=== PATIENT | male | born 1995 | race Caucasian/White ===

== ENCOUNTER 2020-07-01 10:01 | Emergency (ER) | payer OTHER ==
[2020-07-01 10:19] VITALS: BP 161/115; PULSE 95; RESP 18; TEMP 97.4
--- NOTE | 2020-07-01 10:49 | XR ---
EXAMINATION TYPE: XR hand complete LT DATE OF EXAM: 07/01/2020 CLINICAL HISTORY: pain TECHNIQUE: Frontal, lateral and oblique images of the left hand are obtained. COMPARISON: None. FINDINGS: There is no acute fracture/dislocation evident. The joint spaces appear within normal limi ts. The overlying soft tissue appears unremarkable. IMPRESSION: There is no acute fracture or dislocation. ICD 10 NO FRACTURE, INITIAL EVALUATION
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
== END 2020-07-01 11:23 | disposition home or self-care (01) ==
LOC: EC 10:01
DX: M79.642 Pain in left hand (principal); F17.200 Nicotine dependence, unspecified, uncomplicated; Z88.0 Allergy status to penicillin
CPT/HCPCS: 99283

== ENCOUNTER 2020-12-07 18:50 | Emergency (ER) | payer OTHER ==
[2020-12-07 19:04] VITALS: BP 155/109; PULSE 82; RESP 20; TEMP 98.2
[2020-12-07] MEDS ORDERED: PROPARACAINE 0.5% OPHTH DROPS 15 ML BTL LEFT EYE STA (19:18)
[2020-12-07] MEDS ORDERED: FLUORESCEIN STRIPS 1 MG STRIP LEFT EYE ONE (19:19)
[2020-12-07] MEDS ORDERED: KETOROLAC 15 MG/ML 1 ML VIAL IM STA (19:19)
--- NOTE | 2020-12-07 19:52 | ED ---
General Adult HPI - General Chief complaint: Headache Stated complaint: migraine, blurred vision Time Seen by Provider: 12/07/20 19:10 Source: patient Mode of arrival: ambulatory Limitations: no limitations - History of Present Illness Initial comments: 25 year-old male patient presents to the emergency department for evaluation of left eye pain and headache. States that he started having some pain behind his left eye last night. States that throughout the night and through today his pain has progressively worsened. States he thinks he has a migraine headache. Reports photophobia and blurred vision. Reports clear drainage from the eye. Denies fever or chills. Denies nausea or vomiting. Denies dizziness or weakness. Denies history of migraines or similar symptoms. Patient denies any recent rash, cough, shortness of breath, chest pain, abdominal pain, nausea, vomiting, diarrhea, constipation, back pain, numbness, tingling, dizziness, weakness, hematuria, dysuria, urinary urgency, urinary frequency, or any other complaints. - Related Data Home Medications Medication Instructions Recorded Confirmed [id number] 2 tab PO ONCE PRN 12/07/20 12/07/20 [Excedrin] Unknown Blood Pressure Med 1 tab PO DAILY 12/07/20 12/07/20 diphenhydrAMINE [Benadryl] 50 mg PO ONCE PRN 12/07/20 12/07/20 Allergies Allergy/AdvReac Type Severity Reaction Status Date / Time Penicillins Allergy Unknown Verified 12/07/20 20:38 Childhood Review of Systems ROS Statement: Those systems with pertinent positive or pertinent negative responses have been documented in the HPI. ROS Other: All systems not noted in ROS Statement are negative. Past Medical History Past Medical History: Asthma Additional Past Medical History / Comment(s): bronchitis History of Any Multi-Drug Resistant Organisms: C-DIFF Past Surgical History: Adenoidectomy, Appendectomy, Cholecystectomy, Ear Surgery Additional Past Surgical History / Comment(s): 2011 liver resection for harmatoma, R ear tube in and out. Past Anesthesia/Blood Transfusion Reactions: No Reported Reaction Past Psychological History: No Psychological Hx Reported Smoking Status: Current every day smoker Past Alcohol Use History: Occasional Past Drug Use History: Marijuana - Past Family History Father Family Medical History: Hypertension, Sleep Apnea/CPAP/BIPAP Mother Family Medical History: Hypertension General Exam Limitations: no limitations General appearance: alert, in no apparent distress, other (This is a well- developed, well-nourished adult male patient in no acute distress. Vital signs upon presentation temperature 98.2F, pulse 82, respirations 20, blood pressure 155/109, pulse ox 97% on room air.) Eye exam: Present: PERRL, EOMI, conjunctival injection (left), other (Wood's lamp examination with fluorescein stain was performed and showed evidence for corneal ulcer to the left eye.). Absent: normal appearance, scleral icterus, nystagmus, periorbital swelling Expanded Eyelids: Swelling: Left Pupils: Regular, Round: Bilateral, Reactive: Bilateral Sclera/Conjunctival: Injection: Left Visual acuity (R) = 20/: 40 Visual acuity (L) = 20/: 0 (unable to visualize chart) With correction: Yes Respiratory exam: Present: normal lung sounds bilaterally. Absent: respiratory distress, wheezes, rales, rhonchi, stridor Cardiovascular Exam: Present: regular rate, normal rhythm, normal heart sounds. Absent: systolic murmur, diastolic murmur, rubs, gallop, clicks Neurological exam: Present: alert, oriented X3, CN II-XII intact Psychiatric exam: Present: normal affect, normal mood Skin exam: Present: warm, dry, intact, normal color. Absent: rash Course Vital Signs 12/07/20 19:02 Temperature 98.2 F Pulse Rate 82 Respiratory 20 Rate Blood Pressure 155/109 O2 Sat by Pulse 97 Oximetry Medical Decision Making - Medical Decision Making 25 year-old male patient presents to the emergency department for evaluation of left eye pain. Physical examination shows left conjunctival injection, clear tearing, and mild left upper and lower lid swelling. Seen stay with Wood's lamp examination was performed and did show evidence for corneal ulcer to the center of the cornea on the left side. I did discuss the case with the on-call sole skiver Dr. Leiva who instructed to give vigamox q1 hour while awake, tobramycin ointment to use just before bed. He is instructed to go to Dr. Grace nunez's office tomorrow between 10-11am. He verbalizes understanding of instructions and agrees with this plan. Case discussed with my attending Dr. Marcos. Disposition Clinical Impression: Corneal ulcer, left Disposition: HOME SELF-CARE Condition: Good Instructions (If sedation given, give patient instructions): Tobramycin (Into the eye), Moxifloxacin (Into the eye), Corneal Ulcer (ED) Additional Instructions: Use Vigamox eye drop to the left eye, 1 drop every hour while awake. Use 1cm ribbon of tobramycin ointment to the eye right before bed. Continue eye drop in the morning every hour. Follow up with the sole skiver in his office between 10 and 11 AM. Return to the emergency department immediately for any new, worsening, or concerning symptoms. Is patient prescribed a controlled substance at d/c from ED?: No Referrals: Rakan Perez MD [Primary Care Provider] - 1-2 days Jaskaran Leiva MD [STAFF PHYSICIAN] - 1-2 days Time of Disposition: 20:38
[2020-12-07] MEDS ORDERED: MOXIFLOXACIN HCL 0.5% DROPS 3 ML BTL LEFT EYE ONE (20:36)
[2020-12-07] MEDS ORDERED: TOBRAMYCIN 0.3% OPHTH OINT 3.5 GM TUBE LEFT EYE STA (20:36)
== END 2020-12-07 20:54 | disposition home or self-care (01) ==
LOC: EC 18:50
DX: H16.002 Unspecified corneal ulcer, left eye (principal); R51.9 Headache, unspecified; F17.200 Nicotine dependence, unspecified, uncomplicated; J45.909 Unspecified asthma, uncomplicated; Z88.0 Allergy status to penicillin
CPT/HCPCS: 99284; 96372; J1885

== ENCOUNTER 2021-01-10 11:18 | Emergency (ER) | payer OTHER ==
[2021-01-10 11:36] VITALS: RESP 20
[2021-01-10] MEDS ORDERED: KETOROLAC 15 MG/ML 1 ML VIAL IM STA (12:27)
[2021-01-10] MEDS ORDERED: ACETAMINOPHEN TAB 500 MG TAB PO STA (12:27)
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
--- NOTE | 2021-01-10 13:12 | CT ---
EXAMINATION TYPE: CT soft tissue neck wo con DATE OF EXAM: 01/10/2021 COMPARISON: None HISTORY: Swelling to anterior mandible. Fever. CT DLP: [address] of the neck was performed from the skull base through the lung apices. The lack of cont rast limits evaluation. There is soft tissue edema noted anterior to the mandible. There is evidence of apical lucency and de ntal caries involving the right canine as well as the left canine and first and second bicuspid. Ther e is cortical loss noted on the left. Subperiosteal abscess not excluded. AIRWAY: The supraglottic, glottic, and subglottic portions of the airway appear patent and free of mass. SALIVARY GLANDS: The submandibular and parotid glands are free of mass or inflammatory process. THYROID GLAND: No nodules or masses seen. LYMPH NODES: There is a perisubmandibular adenopathy noted measuring 1.1 cm on the right and approxim ately 1 cm on the left. Additional internal jugular chain adenopathy is noted measuring 1.2 cm on the right and up to 1.1 cm on the left. LUNG APICES: No nodule or mass is seen. OTHER: Vascular structures are patent. No significant degenerative change of the cervical spine. N o abscess seen. IMPRESSION: 1. There is soft tissue edema noted anterior to the mandible. There is evidence of apical lucency and dental caries involving the right canine as well as the left canine and first and second bicuspid. T here is cortical loss noted on the left. Subperiosteal abscess not excluded. 2. Reactive adenopathy
[2021-01-10 13:56] VITALS: BP 148/92; PULSE 98; TEMP 99.1
== END 2021-01-10 13:56 | disposition home or self-care (01) ==
LOC: EC 11:18
DX: K02.9 Dental caries, unspecified (principal); K04.7 Periapical abscess without sinus; J45.909 Unspecified asthma, uncomplicated; F17.200 Nicotine dependence, unspecified, uncomplicated; F12.90 Cannabis use, unspecified, uncomplicated; Z79.82 Long term (current) use of aspirin; Z79.899 Other long term (current) drug therapy; Z88.0 Allergy status to penicillin; Z90.49 Acquired absence of other specified parts of digestive tract; Z82.49 Family history of ischemic heart disease and other diseases of the circulatory system
CPT/HCPCS: 70490; 99283; 96372; J1885

== ENCOUNTER 2021-03-16 13:10 | Emergency (ER) | payer OTHER ==
[2021-03-16 14:05] VITALS: BP 157/90; PULSE 77; RESP 20; TEMP 98.2
--- NOTE | 2021-03-16 14:32 | XR ---
Left shoulder HISTORY: Trauma and pain 3 views the left shoulder Bone mineralization, joint spaces and alignment are maintained. Left lung apex as visualized is isa l. IMPRESSION: Normal left shoulder.
[2021-03-16] MEDS ORDERED: HYDROcodone/APAP 5-325MG 1 EACH TAB PO STA (14:33)
--- NOTE | 2021-03-16 14:37 | ED ---
General Adult HPI - General Chief complaint: Extremity Injury, Upper Stated complaint: shoulder injury/no IHS Time Seen by Provider: 03/16/21 14:15 Source: family, RN notes reviewed, old records reviewed Mode of arrival: ambulatory Limitations: no limitations - History of Present Illness Initial comments: Patient is a 25-year-old male with a past medical history remarkable for nothing. Patient comes after feeling a pop in his left shoulder. 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 He comes to the emergency department for further evaluation. States it is painful on movement but he is stable to range his left shoulder with pain. Can reach and touch his right shoulder. Denies any numbness, weakness of the left upper extremity. Denies any rashes. Denies any other acute problems at this time. No other injuries. Since emergency department concern for left shoulder injury.I evaluated the patient when he was placed in a room. - Related Data Previous Rx's Medication Instructions Recorded Clindamycin [Cleocin] 3 tab PO Q8H 10 Days #90 cap 01/10/21 Ibuprofen [Motrin] 800 mg PO Q8H PRN 7 Days #21 tab 03/16/21 Lidocaine 5% Patch [Lidoderm 5% 1 patch TOPICAL DAILY PRN 7 Days 03/16/21 Patch] #7 patch Allergies Allergy/AdvReac Type Severity Reaction Status Date / Time Penicillins Allergy Unknown Verified 03/16/21 14:03 Childhood Review of Systems ROS Statement: Those systems with pertinent positive or pertinent negative responses have been documented in the HPI. Review of Systems: CONST: Denies fever EYES: Denies blurry vision ENT: Denies nasal congestion C/V: Denies Chest pain RESP: Denies shortness of breath GI: Denies abdominal pain : Denies dysuria SKIN: Denies rash. MSK: Endorses left shoulder pain. NEURO: Denies headache ROS Other: All systems not noted in ROS Statement are negative. 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 Past Anesthesia/Blood Transfusion Reactions: No Reported Reaction Past Psychological History: No Psychological Hx Reported Smoking Status: Current every day smoker Past Alcohol Use History: Occasional Past Drug Use History: Marijuana - Past Family History Father Family Medical History: Hypertension, Sleep Apnea/CPAP/BIPAP Mother Family Medical History: Hypertension General Exam - General Exam Comments Initial Comments: General: Appears in no acute distress. HEAD: Normal with no signs of head trauma. EYES: EOMI ENT: Hearing grossly intact. RESPIRATORY: No increased work of breathing. C/V: 2+ peripheral pulses in the bilateral upper extremities are symmetrical. Normal capillary refill in the left upper extremity. ABD: Abdomen is nondistended. EXT: Decreased range of motion of the left shoulder secondary to pain. No obvious deformity. Tenderness to palpation over the AC joint as well as the shoulder muscle girdle. Can passively range the left shoulder. SKIN: No rashes or lesions observed on exposed skin. NEURO: Alert. Acting appropriately. No focal sensory or strength deficits. Neurovascularly intact throughout. Limitations: no limitations Course Vital Signs 03/16/21 14:03 Temperature 98.2 F Pulse Rate 77 Respiratory 20 Rate Blood Pressure 157/90 O2 Sat by Pulse 97 Oximetry Medical Decision Making - Medical Decision Making Based on the patient's presentation and physical exam, I'm concerned for acute bony traumatic injury to the patient's left shoulder. I evaluated the patient once he was placed in a room. He will be given [place] for pain management. Left shoulder x-ray was obtained and showed no acute fracture or subluxation. No acute injury. I opted the patient results of his x-ray. I believe he is likely expressing a shoulder sprain or strain and requires follow-up with orthopedic surgery. He was in agreement this plan.Patient will be given a sling for his left shoulder. I will provide the patient with a prescription for lidocaine patch, ibuprofen. I instructed the patient to follow up with their PCP in the next 3 days. I provided contact information for follow up with orthopedic surgery.. I expl ained that the patient should return to the emergency department if they experience any worsening symptoms. Strict return precautions were discussed with the patient. The patient expressed understanding of these instructions. I answered all questions that the patient had. The patient was discharged home in fair condition with their prescriptions and follow up information. Disposition Clinical Impression: Sprain of shoulder, left Disposition: HOME SELF-CARE Condition: Fair Instructions (If sedation given, give patient instructions): Shoulder Sprain (ED) Prescriptions: Lidocaine 5% Patch [Lidoderm 5% Patch] 1 patch TOPICAL DAILY PRN 7 Days #7 patch PRN Reason: Pain Ibuprofen [Motrin] 800 mg PO Q8H PRN 7 Days #21 tab PRN Reason: Pain Is patient prescribed a controlled substance at d/c from ED?: No Referrals: Rakan Perez MD [Primary Care Provider] - 1-2 days Flex Gardner PAC [PHYSICIAN FUNERAL HOME ASSISTANT] - 1-2 days
== END 2021-03-16 15:11 | disposition home or self-care (01) ==
LOC: EC 13:10
DX: S43.402A Unspecified sprain of left shoulder joint, initial encounter (principal); J45.909 Unspecified asthma, uncomplicated; F17.200 Nicotine dependence, unspecified, uncomplicated; F12.90 Cannabis use, unspecified, uncomplicated; Z72.89 Other problems related to lifestyle
CPT/HCPCS: 99283